=== PATIENT | female | born 1965 | race African-American/Black ===

== ENCOUNTER 2025-01-15 20:26 | Emergency (ER) | payer OTHER ==
[~2025-01-15] VITALS: Ht 167.6 cm; Wt 96.0 kg
[2025-01-15 20:37] VITALS: O2SAT 100
[2025-01-15] MEDS: KETOROLAC 30MG/ML VIAL IM ONE (21:59)
[2025-01-15] MEDS: CYCLOBENZAPRINE 10MG TABLET PO ONE (21:59)
[2025-01-15 23:07] VITALS: BP 130/86; PULSE 66; RESP 14; TEMP 37; O2SAT 100
[2025-01-15] MEDS ORDERED: CYCL10TA21 MT (23:48)
[2025-01-15] MEDS ORDERED: NAPR-681 MT (23:48)
== END 2025-01-16 | disposition home or self-care (01) ==
LOC: ER 20:26
DX: S76.011A Strain of muscle, fascia and tendon of right hip, initial encounter (principal); E03.9 Hypothyroidism, unspecified; Z79.1 Long term (current) use of non-steroidal anti-inflammatories (NSAID); W01.0XXA Fall on same level from slipping, tripping and stumbling without subsequent striking against object, initial encounter; Y93.89 Activity, other specified; Y92.89 Other specified places as the place of occurrence of the external cause; Y99.8 Other external cause status
CPT/HCPCS: 99283; 96372; J1885